=== PATIENT | female | born 1980 | race Caucasian/White ===

== ENCOUNTER 2020-05-27 13:17 | Inpatient (IN) ==
[2020-05-27] MEDS ORDERED: cefTRIAXone 2,000 MG in Water for inj. (sterile) 10 ML IVP ONE (13:25)
[2020-05-27] MEDS ORDERED: Azithromycin 500 MG in 0.9 % Sodium Chloride 250 ML IVPB ONE (13:25)
[2020-05-27] MEDS ORDERED: Ipratropium/Albuterol Neb 3 ML IH ONE (13:25)
[2020-05-27] MEDS ORDERED: methylPREDNISolone 125 MG/2 ML VIAL IVP ONE (13:25)
[2020-05-27] MEDS ORDERED: 0.9 % Sodium Chloride 1,000 ML IVC ONE ×2 (13:25→15:21)
[2020-05-27 13:57] LABS: Basophils % 0.1 %; Eosinophils # 0.1 K/mcL (0.0-0.6); Eosinophils % 0.3 %; Hematocrit 32.6 % (35.3-44.9); Hemoglobin 11.2 g/dL (11.5-15.4); Lymphocytes # 0.8 K/mcL (0.6-4.6); Lymphocytes % 3.6 %; Mean Corpuscular HGB Conc 34.4 g/dL (31.6-35.5); Mean Corpuscular Hemoglobin 30.9 pg (28.0-33.3); Mean Corpuscular Volume 89.8 fL (83.0-100.0); Mean Platelet Volume 10.3 fL (9.4-12.4); Monocytes # 1.6 K/mcL (0.0-1.3); Platelet Count 261 K/mcL (140-400); Red Blood Count 3.63 M/mcL (3.82-4.97); Red Cell Distribution Width 14.2 % (11.5-14.5); White Blood Count 22.7 K/mcL (4.3-11.1)
[2020-05-27 14:09] LABS: Activated Partial Thrombo Time 29.4 Seconds (26.0-36.0); INR 1.5
[2020-05-27 14:15] LABS: BUN/Creatinine Ratio 20 (6-26); Blood Urea Nitrogen 16 mg/dL (6-20); Calcium 8.6 mg/dL (8.6-10.3); Carbon Dioxide 21 mEq/L (23-29); Chloride 103 mEq/L (98-107); Glucose 94 mg/dL (70-105); Osmolality,Calculated 279 (280-300); Potassium 3.7 mEq/L (3.5-5.1); Sodium 134 mEq/L (136-145); eGFR For African Americans > 60 (> 60); eGFR For Non-African Americans > 60 (> 60)
[2020-05-27 14:16] LABS: Troponin I < 0.03 ng/mL (< 0.04)
[2020-05-27] MEDS ORDERED: Isovue-370 500 ML BOTTLE IVP ONE (14:17)
[2020-05-27] MEDS ORDERED: *HR* HYDROcodone/Acet 5/325 mg TABLET PO ONE (14:47)
[2020-05-27] MEDS ORDERED: MOM Conc 10 ML UD.LIQ PO PRN (15:16)
[2020-05-27] MEDS ORDERED: Ondansetron 4 MG/2 ML VIAL IVP PRN (15:16)
[2020-05-27] MEDS ORDERED: Naloxone 0.4 MG/ML INJ IVP PRN (15:16)
[2020-05-27] MEDS ORDERED: Mag Hydrox/Al Hydrox/Simeth 30 ML UDC PO PRN (15:16)
[2020-05-27] MEDS ORDERED: Tiotropium 18 MCG inhalation IH PRN (15:21)
[2020-05-27] MEDS ORDERED: Ipratropium/Albuterol Neb 3 ML IH PRN (15:24)
[2020-05-27] MEDS ORDERED: Sucralfate 1 GM TABLET PO SCH (16:30)
[2020-05-27] MEDS: MethylPREDNISolone 40 MG/ML VIAL IVP SCH ×2 (17:47→23:27)
[2020-05-27] MEDS: Sucralfate 1 GM TABLET PO SCH ×2 (17:47→20:35)
[2020-05-27] MEDS: Nicotine 14 MG PATCH.TD24 TD SCH (18:11)
[2020-05-27] MEDS: Budesonide/Formoterol 160/4.5 1 PUFF INH IH SCH (20:06)
[2020-05-27] MEDS: 0.9 % Sodium Chloride 1,000 ML IVC SCH (20:37)
[2020-05-27 23:50] LABS: Adenovirus Not Detected (Not Detect); Bordetella Pertussis Not Detected (Not Detect); Chlamydophila pneumoniae Not Detected (Not Detect); Coronavirus 229E Not Detected (Not Detect); Coronavirus HKU1 Not Detected (Not Detect); Coronavirus NL63 Not Detected (Not Detect); Coronavirus OC43 Not Detected (Not Detect); Human Metapneumovirus Not Detected (Not Detect); Human Rhinovirus/Enterovirus Not Detected (Not Detect); Influenza A Subtype 2009 H1 Not Detected (Not Detect); Influenza B Not Detected (Not Detect); Mycoplasma pneumoniae Not Detected (Not Detect); Parainfluenza Virus 1 Not Detected (Not Detect); Parainfluenza Virus 2 Not Detected (Not Detect); Parainfluenza Virus 3 Not Detected (Not Detect); Parainfluenza Virus 4 Not Detected (Not Detect); Respiratory Syncytial Virus Not Detected (Not Detect)
[2020-05-28] MEDS: 0.9 % Sodium Chloride 1,000 ML IVC SCH ×3 (03:06→17:47)
[2020-05-28] MEDS: MethylPREDNISolone 40 MG/ML VIAL IVP SCH ×2 (05:29→15:28)
[2020-05-28 07:09] LABS: Basophils % 0.1 %; Hematocrit 31.8 % (35.3-44.9); Hemoglobin 10.4 g/dL (11.5-15.4); Lymphocytes % 3.1 %; Mean Corpuscular HGB Conc 32.7 g/dL (31.6-35.5); Mean Corpuscular Hemoglobin 30.2 pg (28.0-33.3); Mean Corpuscular Volume 92.4 fL (83.0-100.0); Mean Platelet Volume 11.2 fL (9.4-12.4); Monocytes # 1.1 K/mcL (0.0-1.3); Monocytes % 4.7 %; Platelet Count 256 K/mcL (140-400); Red Blood Count 3.44 M/mcL (3.82-4.97); Red Cell Distribution Width 14.6 % (11.5-14.5); Segmented Neutrophils % 91.1 %; White Blood Count 24.1 K/mcL (4.3-11.1)
[2020-05-28 07:26] LABS: Lymphocytes # 0.8 K/mcL (0.6-4.6)
[2020-05-28 07:29] LABS: BUN/Creatinine Ratio 25 (6-26); Blood Urea Nitrogen 16 mg/dL (6-20); Calcium 8.8 mg/dL (8.6-10.3); Carbon Dioxide 22 mEq/L (23-29); Chloride 107 mEq/L (98-107); Glucose 99 mg/dL (70-105); Osmolality,Calculated 291 (280-300); Sodium 140 mEq/L (136-145); eGFR For African Americans > 60 (> 60); eGFR For Non-African Americans > 60 (> 60)
[2020-05-28] MEDS ORDERED: MethylPREDNISolone 40 MG/ML VIAL IVP SCH (08:00)
[2020-05-28] MEDS ORDERED: VENLAFAXINE PO SCH (09:00)
[2020-05-28] MEDS ORDERED: VENLAFAXINE HCL 100 MG DT SCH (09:00)
[2020-05-28 09:05] LABS: Anisocytosis 1+ (Not Present); Platelet Estimate Normal (Normal); Toxic Granulation Present (Not Present)
[2020-05-28] MEDS: Budesonide/Formoterol 160/4.5 1 PUFF INH IH SCH ×2 (09:15→20:25)
[2020-05-28] MEDS: Acetaminophen 325 MG TABLET PO PRN ×2 (10:03→20:59)
[2020-05-28] MEDS: Cholecalciferol (D-3) 1,000 UNIT (25MCG) TABLET PO SCH (10:03)
[2020-05-28] MEDS: Venlafaxine XR (24 HR) 37.5 MG CAP.ER.24H PO SCH (10:04)
[2020-05-28] MEDS: Sucralfate 1 GM TABLET PO SCH ×4 (10:04→20:47)
[2020-05-28] MEDS: Nicotine 14 MG PATCH.TD24 TD SCH (10:04)
[2020-05-28] MEDS: *HR* Enoxaparin 40 MG/0.4 ML SYRINGE SQ SCH (10:33)
[2020-05-28] MEDS ORDERED: cefTRIAXone 2,000 MG in 0.9 % Sodium Chloride Mini Bag 100 ML IVPB SCH (13:00)
[2020-05-28] MEDS: Gabapentin 300 MG CAPSULE PO PRN ×2 (13:45→21:00)
[2020-05-28] MEDS ORDERED: Azithromycin 500 MG in 0.9 % Sodium Chloride 250 ML IVPB SCH (14:00)
[2020-05-29] MEDS: MethylPREDNISolone 40 MG/ML VIAL IVP SCH ×2 (00:29→08:06)
[2020-05-29] MEDS: 0.9 % Sodium Chloride 1,000 ML IVC SCH ×2 (02:16→08:10)
[2020-05-29] MEDS: *HR* Enoxaparin 40 MG/0.4 ML SYRINGE SQ SCH (05:31)
[2020-05-29] MEDS: Budesonide/Formoterol 160/4.5 1 PUFF INH IH SCH (07:34)
[2020-05-29 08:02] LABS: Basophils % 0.1 %; Hematocrit 31.1 % (35.3-44.9); Hemoglobin 10.2 g/dL (11.5-15.4); Immature Granulocytes % 1.1 % (0-4); Lymphocytes # 0.8 K/mcL (0.6-4.6); Lymphocytes % 4.9 %; Mean Corpuscular HGB Conc 32.8 g/dL (31.6-35.5); Mean Corpuscular Hemoglobin 30.4 pg (28.0-33.3); Mean Corpuscular Volume 92.8 fL (83.0-100.0); Monocytes # 0.7 K/mcL (0.0-1.3); Monocytes % 3.8 %; Platelet Count 284 K/mcL (140-400); Red Blood Count 3.35 M/mcL (3.82-4.97); Red Cell Distribution Width 14.8 % (11.5-14.5); Segmented Neutrophils % 90.1 %; White Blood Count 17.1 K/mcL (4.3-11.1)
[2020-05-29 08:06] LABS: Neutrophils # 15.4 K/mcL (1.6-8.9)
[2020-05-29] MEDS: Sucralfate 1 GM TABLET PO SCH (08:06)
[2020-05-29 08:22] LABS: BUN/Creatinine Ratio 32 (6-26); Blood Urea Nitrogen 18 mg/dL (6-20); Calcium 8.2 mg/dL (8.6-10.3); Carbon Dioxide 21 mEq/L (23-29); Chloride 110 mEq/L (98-107); Glucose 141 mg/dL (70-105); Osmolality,Calculated 294 (280-300); Potassium 3.7 mEq/L (3.5-5.1); Sodium 140 mEq/L (136-145); eGFR For African Americans > 60 (> 60); eGFR For Non-African Americans > 60 (> 60)
[2020-05-29] MEDS: Nicotine 14 MG PATCH.TD24 TD SCH (10:09)
[2020-05-29] MEDS: Venlafaxine XR (24 HR) 37.5 MG CAP.ER.24H PO SCH (10:09)
[2020-05-29] MEDS: Cholecalciferol (D-3) 1,000 UNIT (25MCG) TABLET PO SCH (10:09)
[2020-05-29 11:08] VITALS: BP 119/69
[2020-05-29] MEDS ORDERED: MethylPREDNISolone 40 MG/ML VIAL IVP SCH (18:00)
== END 2020-05-29 13:37 | disposition home or self-care (01) | DRG 720 ==
LOC: INPPIK 13:17 → EMEROOPIK 13:17 → INPPIK 15:36
PROVIDERS: ADMIT Family Medicine; ATTEND Family Medicine